=== PATIENT | male | born 1990 | race American Indian/Alaskan Native ===

== ENCOUNTER 2021-03-03 18:33 | Emergency (ER) | payer OTHER ==
[2021-03-03 18:38] VITALS: BP 162/111
[2021-03-03] MEDS ORDERED: HYDROcodone/ACETAMINOPHEN 5-325 MG TAB PO STA (21:37)
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
== END 2021-03-04 00:22 | disposition home or self-care (01) ==
LOC: ED 18:33
DX: R07.9 Chest pain, unspecified (principal)
CPT/HCPCS: 99283